=== PATIENT | male | born 1980 | race Caucasian/White ===

== ENCOUNTER 2019-01-13 10:20 | Emergency (ER) | payer BC ==
--- NOTE | 2019-01-13 11:27 | RAD ---
XR Knee Rt 3 View: 01/13/2019 10:53 AM CLINICAL INDICATION: Right knee pain COMPARISON: None. FINDINGS: Bones: No acute fracture is present. There are small marginal osteophytes affecting the medial femor al tibial joint compartment. There is a stippled calcific density measuring 1.3 cm within the distal right femoral shaft which may reflect a small low-grade chondroid lesion or bone infarct. Joints: No joint capsular distention is grossly evident.. Soft Tissue: Within normal limits. There is small heterotopic ossification seen along the medial aspe ct of the proximal tibia which may reflect sequela remote trauma.. IMPRESSION: 1. No acute fracture or subluxation. 2. Early mild osteoarthrosis. 3. Calcific density seen within the distal intramedullary space of the distal right femoral shaft may reflect a small low-grade chondroid lesion or bone infarct..
[2019-01-13] MEDS ORDERED: Ibuprofen 800 MG TAB ONE (11:29)
== END 2019-01-13 11:42 | disposition home or self-care (01) ==
LOC: MADERS 10:20
DX: S83.004A Unspecified dislocation of right patella, initial encounter (principal); Z87.891 Personal history of nicotine dependence; X50.1XXA Overexertion from prolonged static or awkward postures, initial encounter

== ENCOUNTER 2024-09-07 17:53 | Emergency (ER) | payer BC, OTHER ==
[2024-09-07] MEDS ORDERED: Ibuprofen 200 MG TAB ONE (20:30)
== END 2024-09-07 20:33 | disposition home or self-care (01) ==
LOC: MADERS 17:53
DX: J10.1 Influenza due to other identified influenza virus with other respiratory manifestations (principal); F17.290 Nicotine dependence, other tobacco product, uncomplicated
CPT/HCPCS: 87081; 87400; 87426; 87430; 99283